=== PATIENT | female | born 1990 | race Caucasian/White ===

== ENCOUNTER 2025-01-20 19:45 | Emergency (ER) | payer MEDICAID ==
[~2025-01-20] VITALS: Ht 157.5 cm; Wt 81.6 kg
[2025-01-20 20:29] LABS: BASOPHILS % 0.8 % (0.0-1.0); EOSINOPHILS % 1.0 % (0.0-6.0); LYMPHOCYTES % 30.0 % (18.0-39.1); MONOCYTES % 9.0 % (4.4-11.3); NEUTROPHILS % 58.8 % (38.7-80.0); RED CELL DISTRIBUTION WIDTH 13.2 % (11.7-14.4)
[2025-01-20 20:38] LABS: PREGNANCY TEST, URINE NEGATIVE (NEGATIVE)
[2025-01-20 20:39] LABS: LEUKOCYTE ESTERASE ,URINE NEGATIVE (NEGATIVE); PROTEIN,URINE DIPSTICK >=300 (NEGATIVE); URINE UROBILINOGEN 1 mg/dL (0.2 - 1)
[2025-01-20 20:41] LABS: EPITHELIAL CELLS,URINE FEW /LPF; WBC,URINE (MAN) 0-5 /HPF (0-5)
[2025-01-20 20:51] LABS: EST GLOMERULAR FILTRATION RATE 95.0 ML/MIN (>=60)
[2025-01-20] MEDS ORDERED: IOPAMIDOL 370 MG/ML 100 ML INFUS..BTL INJ ONE (21:04)
[2025-01-20] MEDS: SODIUM CHLORIDE 0.9% 1000ML 1,000 ML IV STA (21:30)
[2025-01-20] MEDS: ONDANSETRON HCL INJ 2MG/ML 2ML 2 MG/ML VIAL IV STA (21:31)
[2025-01-20 22:00] VITALS: TEMP 36.72516
[2025-01-20 23:00] VITALS: PULSE 73; RESP 14
[2025-01-20 23:53] VITALS: BP 136/86; PULSE 74; RESP 14; TEMP 98.5; O2SAT 100
== END 2025-01-20 23:41 | disposition home or self-care (01) ==
LOC: ER 19:50
DX: N93.8 Other specified abnormal uterine and vaginal bleeding (principal); D64.9 Anemia, unspecified; R53.1 Weakness
CPT/HCPCS: 36415; 74177; 80053; 81001; 81025; 83690; 85025; 99284; J7030; Q9967